=== PATIENT | female | born 1995 | race American Indian/Alaskan Native ===

== ENCOUNTER 2018-07-17 23:12 | Emergency (ER) | payer OTHER ==
--- NOTE | 2018-07-18 01:28 | Cat Scan Report ---
PROCEDURE: CT HEAD/BRAIN WO CON TECHNIQUE: Computerized tomography of the head was performed without contrast material. CT DOSE LENGTH PRODUCT: 920.5 mGycm HISTORY: head Injury/ left eye injury COMPARISONS: None . FINDINGS: Skull and scalp: There is moderate soft tissue swelling over the left orbit. . Paranasal sinuses: Normal . Ventricles and subarachnoid spaces: Normal . Cerebrum: No evidence of hemorrhage, acute infarction or mass . Cerebellum and brainstem: No evidence of hemorrhage, acute infarction or mass . Vasculature: Normal . Other: None . ASPECTS: 10 IMPRESSION: There is no evidence of an acute intracranial process. There is moderate soft tissue swe lling over the left orbit. . This document is electronically signed by Elise Stephenson DO., July 18 2018 01:26:55 AM ET
--- NOTE | 2018-07-18 01:30 | Cat Scan Report ---
PROCEDURE: CT CERVICAL SPINE WO CON TECHNIQUE: Computerized tomography of the cervical spine was performed from the skull base to T1 wit hout contrast material. CT DOSE LENGTH PRODUCT: 633.6 mGycm HISTORY: head Injury/ left eye injury COMPARISONS: None . FINDINGS: The alignment of the vertebral segments is normal. The heights of the vertebral bodies and the disc s paces are maintained. No evidence of an acute fracture or dislocation of the cervical spine. Canal is adequate at all levels. C1-2: No significant abnormality . C2-3: No significant abnormality . C3-4: No significant abnormality . C4-5: No significant abnormality . C5-6: No significant abnormality . C6-7: No significant abnormality . C7-T1: No significant abnormality . Fractures: None . Other: No additional findings . IMPRESSION: Normal CT cervical spine. . This document is electronically signed by Elise Stephenson DO., July 18 2018 01:28:36 AM ET
--- NOTE | 2018-07-18 01:44 | Cat Scan Report ---
PROCEDURE: CT FACIAL BONES WO CON TECHNIQUE: Computerized tomography of the facial bones and soft tissues with axial and coronal secti ons performed from the cranial aspect of the frontal sinuses to the caudal portion of the mandible wi thout contrast material. Automated exposure control, adjustment of mA and/or kV according to patient size, or iterative reconstruction dose optimization techniques were utilized. CT DOSE LENGTH PRODUCT: 527.9 mGycm HISTORY: head Injury/ left eye injury COMPARISONS: None . FINDINGS: Bones: No significant abnormality . Paranasal sinuses: Clear . Soft tissues: There is moderate soft tissue swelling over the left orbit . Other: None . IMPRESSION: There is no evidence of an acute facial bone fracture. There is moderate soft tissue swe lling over the left orbit. . This document is electronically signed by Elise Stephenson DO., July 18 2018 01:42:24 AM ET
[2018-07-18] MEDS ORDERED: PERCOCET 5/325 PO ONE (01:58)
[2018-07-18] MEDS ORDERED: TETRACAINE 0.5% OU STA (01:58)
[2018-07-18] MEDS ORDERED: IBUPROFEN PO ONE (01:58)
[2018-07-18] MEDS ORDERED: FUL-GLO OP ONE (01:58)
[2018-07-18] MEDS ORDERED: NACL 0.9% IR ONE (03:00)
[2018-07-18] MEDS ORDERED: DILAUDID IM ONE ×3 (03:00→03:25)
[2018-07-18] MEDS ORDERED: NACL 0.9% 500 ML IR ONE (03:02)
[2018-07-18] MEDS ORDERED: DILAUDID ONE (03:03)
[2018-07-18] MEDS ORDERED: XYLOCAINE 1%/ EPI 1:100,000 INFILTRATI ONE ×2 (03:33→03:42)
[2018-07-18] MEDS ORDERED: ANTIBIOTIC OINT TP STA (03:57)
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
[2018-07-18 04:33] VITALS: BP 111/71
== END 2018-07-18 04:32 | disposition home or self-care (01) ==
LOC: ED 23:12
DX: S01.81XA Laceration without foreign body of other part of head, initial encounter (principal); M54.2 Cervicalgia; Y04.8XXA Assault by other bodily force, initial encounter; Y93.89 Activity, other specified; Y92.89 Other specified places as the place of occurrence of the external cause; Y99.8 Other external cause status
CPT/HCPCS: 12013; 70450; 70486; 72125; 96372; 99284; J1170

== ENCOUNTER 2018-07-23 18:35 | Emergency (ER) | payer OTHER ==
[2018-07-23 18:41] VITALS: BP 126/82
--- NOTE | 2018-07-23 19:00 | Emergency Department Report ---
Suture/Staple Removal - [facility] Chief Complaint: Laceration/Recheck/Suture Stated Complaint: SUTURE REMOVAL Time Seen by Provider: 07/23/18 18:49 When Sutures or Attila Placed: 5-7 Days Ago Wound Location: left brow ED Review of Systems ROS: Stated complaint: SUTURE REMOVAL Other details as noted in HPI Constitutional: denies: chills, fever Eyes: denies: eye pain, eye discharge, vision change ENT: denies: ear pain, throat pain Respiratory: denies: cough, shortness of breath, wheezing Cardiovascular: denies: chest pain, palpitations Endocrine: no symptoms reported Gastrointestinal: denies: abdominal pain, nausea, diarrhea Genitourinary: denies: urgency, dysuria, discharge Musculoskeletal: denies: back pain, joint swelling, arthralgia Skin: denies: rash, lesions Neurological: denies: headache, weakness, paresthesias Psychiatric: denies: anxiety, depression Hematological/Lymphatic: denies: easy bleeding, easy bruising ED Past Medical Hx - Past Medical History Previous Medical History?: No - Surgical History Past Surgical History?: No - Social History Smoking Status: Current Every Day Smoker Substance Use Type: Marijuana - Medications Home Medications: Home Medications Medication Instructions Recorded Confirmed Last Taken Type Acetaminophen [Tylenol] 500 mg PO Q6HR PRN #30 tablet 07/18/18 Unknown Rx Ibuprofen [Motrin] 600 mg PO Q8H PRN #30 tablet 07/18/18 Unknown Rx Metoclopramide [Reglan] 10 mg PO QID PRN #30 tablet 07/18/18 Unknown Rx oxyCODONE [Roxicodone] 5 mg PO Q6HR PRN #15 tablet 07/18/18 Unknown Rx Suture Removal Exam - Exam General: Vital signs noted. No distress. Alert and acting appropriately. Wound: Yes Tenderness, No Pathologic Erythema, No Drainage, No Pus, No Wound Dehiscence Other Systems: All other systems reviewed and are unremarkable. sutures in place to left brow ED Course Vital Signs 07/23/18 18:39 Temperature 97.9 F Pulse Rate 101 H Respiratory 16 Rate Blood Pressure 126/82 O2 Sat by Pulse 100 Oximetry - Procedure Description Procedures done: wound evaluated by provider and sutures removed by nursing Critical care attestation.: If time is entered above; I have spent that time in minutes in the direct care of this critically ill patient, excluding procedure time. ED Disposition Clinical Impression: Visit for suture removal Disposition: TO HOME OR SELFCARE Is pt being admited?: No Does the pt Need Aspirin: No Condition: Stable Instructions: Suture Removal (ED) Referrals: [facility] [Provider Group] - 3-5 Days
== END 2018-07-23 19:00 | disposition home or self-care (01) ==
LOC: ED 18:35
DX: S01.112D Laceration without foreign body of left eyelid and periocular area, subsequent encounter (principal); X58.XXXD Exposure to other specified factors, subsequent encounter